=== PATIENT | male | born 1955 | race Caucasian/White ===

== ENCOUNTER 2016-10-27 19:20 | Emergency (ER) | payer OTHER ==
[~2016-10-27] VITALS: Ht 180.3 cm; Wt 83.5 kg
--- NOTE | ~2016-10-27 | EKG ---
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 : 1955 Requested By: Mary Garcia Order Number: [id number] MD: Efrem Al Measurements Intervals [place] Rate: 61 P: -14 CO: 207 QRS: -7 QRSD: 118 T: 55 QT: 422 QTc: 425 Interpretive Statements Sinus rhythm Nonspecific intraventricular conduction delay Probable anteroseptal infarct, old Compared to ECG 10/27/2014 17:38:08 Septal Q waves are now present Electronically Signed On 10-29-2016 7:48:08 CDT by Efrem Al [email or web address] <ELECTRONICALLY SIGNED> By: Efrem Al MD, [facility] 10/29/16 0748 34 34 Efrem Al MD, [facility] /EPI
[~2016-10-27 19:20] MED LIST: ACETAMINOPHEN325 M1 PO; ADULT LOW DOSE81 MG PO; AMARYL1 MG PO; CELEXA 20 MG TA20 M1 PO; CLOPIDOGREL75 MG PO; CLOZAPINE100 M1 PO; CLOZAPINE25 MG PO; COLACE 100 MG100 MG PO; COUMADIN 10MG T10 M1 PO; COUMADIN 1MG TAB1 M1 PO; COUMADIN 3 MG TA3 M1 PO; COUMADIN 5 MG TA5 M1 PO; DUONEB 2.5-0.5 M3 ML INH; EFFIENT10 MG PO; FAMOTIDINE20 MG PO; FAZACLO100 MG PO; FAZACLO200 MG PO; FAZACLO25 MG PO; HYDROCODON-ACE1 EAC7 PO; IPRAT-ALBUT 0.5-3 ML IH; JANTOVEN4 MG PO; K-DUR10 MEQ PO; LEVAQUIN 500 M500 M2 PO; LISINOPRIL20 MG PO; LOPRESSOR 12.12.5 MG PO; MELATONIN3 MG PO; MOM PO; MYSOLINE PO; NEURONTIN 400400 M1 PO; NEURONTIN800 MG PO; NITROGLYCERIN0.4 MG SUBLING; NOVOLOG100 UNIT/1 SUBQ; PEPCID20 MG PO; POTASSIUM20 PO; PREDNISONE PO; PREDNISONE50 MG PO; PRIMIDONE50 MG PO; RESTORIL15 MG PO; SIMVASTATIN40 MG PO; TAMSULOSIN HCL0.4 MG PO; VITAMIN B-12500 MCG PO; ZYPREXA 5 MG TAB5 M2 PO; ZYPREXA5 MG PO; [UNRECOGNIZED DRUG - OTHER] IO
[2016-10-27] MEDS ORDERED: FLONASE 0.05%50 MCG NASAL (19:30)
[2016-10-27] MEDS ORDERED: XARELTO10 MG PO (19:30)
[2016-10-27] MEDS ORDERED: LORATIDINE 10 M10 M1 PO (19:32)
[2016-10-27] MEDS ORDERED: MYSOLINE50 MG PO (19:35)
[2016-10-27] MEDS ORDERED: LEVEMIR SUBQ (19:37)
[2016-10-27] MEDS ORDERED: [UNRECOGNIZED DRUG - OTHER] PO (19:39)
[2016-10-27 19:46] LABS: ABSOLUTE NEUTROPHILS 5.1 thou/uL (1.4-8.2); EOSINOPHILS 5.3 % (0.0-3.0); HEMATOCRIT 39.1 % (42.0-52.0); HEMOGLOBIN 13.5 gm/dL (14.0-18.0); LYMPHOCYTES 21.9 % (24.0-44.0); MCH 28.5 pg (26.0-34.0); MCHC 34.5 g/dL (28.0-37.0); MCV 82.5 fL (80.0-100.0); MONOCYTES 6.6 % (1.0-8.0); PLATELET COUNT 157 thou/uL (150-400); POLYS 65.2 % (36.0-66.0); RBC 4.74 mil/uL (4.50-6.00); RDW 15.8 % (10.5-14.5); WBC 7.8 thou/uL (4.0-11.0)
[2016-10-27 19:47] LABS: MANUAL DIFF NO
[2016-10-27 19:55] LABS: ANION GAP 2 mmol/L (7-16); BUN 13 mg/dL (7-18); CHLORIDE 107 mmol/L (98-107); CO2 29 mmol/L (21-32); GLUCOSE 100 mg/dL (74-106); SODIUM 138 mmol/L (136-145)
[2016-10-27 20:02] LABS: ALBUMIN 3.4 g/dL (3.4-5.0); ALKALINE PHOSPHATASE 113 U/L (46-116); DIRECT BILIRUBIN 0.2 mg/dL (<0.1-0.3); SGOT 16 U/L (15-37); SGPT 16 U/L (30-65); TOTAL BILIRUBIN 0.5 mg/dL (<0.1-1.0); TOTAL PROTEIN 7.4 g/dL (6.4-8.2); TROPONIN-I < 0.04 ng/mL (<0.04-0.07)
== END 2016-10-27 20:49 ==
LOC: ER 19:20
PROVIDERS: Emergency Medicine
DX: R53.1 Weakness (principal); N40.0 Benign prostatic hyperplasia without lower urinary tract symptoms; J44.9 Chronic obstructive pulmonary disease, unspecified; K21.9 Gastro-esophageal reflux disease without esophagitis; M06.9 Rheumatoid arthritis, unspecified; I10 Essential (primary) hypertension; E11.9 Type 2 diabetes mellitus without complications; F25.9 Schizoaffective disorder, unspecified; F29 Unspecified psychosis not due to a substance or known physiological condition; Z88.0 Allergy status to penicillin; Z86.2 Personal history of diseases of the blood and blood-forming organs and certain disorders involving the immune mechanism; Z86.718 Personal history of other venous thrombosis and embolism; Z88.8 Allergy status to other drugs, medicaments and biological substances; Z79.4 Long term (current) use of insulin

== ENCOUNTER 2017-10-11 21:17 | Inpatient (IN) | payer OTHER ==
[~2017-10-11] VITALS: Ht 180.3 cm; Wt 80.5 kg
--- NOTE | ~2017-10-11 | EEG ---
[facility] [place] [address] ELECTROENCEPHALOGRAM Name: NATALIYA KEYS Room #: 453-P ADM IN M.R.#: [id number] Admission: 10/11/17 Attend Phys: Presley Patten MD Discharge: Date of : 51 Report #: [id number] THIS REPORT FOR: //name// CC: Presley Karimi DATE OF SERVICE: 10/13/2017 This patient is being evaluated for altered mental status. EEG was done by placing the electrodes by standard 10-20 system of electrode placement. Both referential and sequential montages were used for recording. Background activity in this patient's EEG is about 8-9 Hz and 30 microvolt. It is a symmetrical activity. Photic stimulation is unremarkable. This patient became drowsy. That is associated with bilateral slowing. Throughout the record, no active epileptiform activity was noted. IMPRESSION: Moderate amount of artifact because the patient continued to move. No active epileptiform activity appeared to be present. EEG is intermixed with slight theta range slowing, which is a nonspecific finding. That can occur with encephalopathy, effect of psychotropic medication, dementia, etc. Clinical correlation is recommended. By: 1834 1845 Tiago Quevedo MD /nt
--- NOTE | ~2017-10-11 | HC ---
[facility] [place] [address] CONSULTATION Name: NATALIYA KEYS Room #: 453-P ADM IN M.R.#: [id number] Admission: 10/11/17 Attend Phys: Presley Patten MD Discharge: Date of : 51 Report #: [id number] THIS REPORT FOR: //name// CC: Presley Karimi DATE OF SERVICE: 10/13/2017 HISTORY OF PRESENT ILLNESS: This is a 61-year-old male patient who was evaluated by me for the possibility of dementia. The patient is not providing much history. I got the history from the record. Apparently, this patient has a history of schizophrenia. He apparently fell down. It is not clear why he fell down. He does not think he passed out. Record indicates that he said he fell down 18 times. He usually uses a walker. He does have gait disturbances, severity is not clear. REVIEW OF SYSTEMS: Indicate that the patient appeared to have schizophrenia. He is on multiple medications, but it is not clear what medication he is on. He does take primidone, I am not sure why he takes primidone. He cannot tell me. He does take some antidepressants. I carried out the 14-point review of systems, part of it from the patient, part of it from him. That is all I can get in this patient. Record indicate he does have a history of acute kidney injury, altered mental status, dehydration, pneumonia, upper GI bleed, syncope, renal insufficiency, falls, weakness, etc., but that is all from the record. I cannot get any good history from the patient himself and that was his relevant 14-point review of systems I can get. PAST MEDICAL HISTORY: Positive for psychiatric problem. FAMILY HISTORY: Negative for early age stroke. SOCIAL HISTORY: He says he does not smoke, he does not drink alcohol, but it is difficult to confirm or verify the history. PHYSICAL EXAMINATION: Indicate he is alert, responsive. He does not tell me what month it is. He does not tell me what day it is. He does get wandered into his own world very soon. His memory and fund of knowledge does appear to be diminished. Cranial nerve examination 2-12 was attempted. He did not cooperate, but he moves all 4 extremities. He can appreciate the touch. Reflexes are difficult to test. DTR, he will not relax. His tone looks symmetrical. I tried to look at the fundus. He could not cooperate. He did not understand the instruction for cerebellar sign. His pulses are difficult to feel, but he has no edema, cyanosis or jaundice. Blood pressure is 151/76, respirations 20, pulse is 64, temperature is 97.8. His cardiac examination is unremarkable. There is no definite respiratory difficulty or rhonchi. [facility] [address] [place] [address] CONSULTATION Name: NATALIYA KEYS Room #: 453-P ADM IN M.R.#: [id number] Admission: 10/11/17 Attend Phys: Presley Patten MD Discharge: Date of : 51 Report #: [id number] LABORATORY DATA: His white count is 9.5 and his sodium is 139. He did have a CT scan of the head, which was reviewed and which was unremarkable. IMPRESSION: The patient's symptoms appeared to be secondary to psychiatric problem. He may have some underlying dementia. It is so difficult to tell because of his history. I will get an EEG done. We will look at his records and see if there is any contraindication for MRI and MRA. If it is not, then we might get an MRI of the brain, MRA of the head and neck. His blood workup is already ordered. We will await that. RECOMMENDATIONS: 1. EEG. 2. If we can exclude the contraindication, we can get an MRI of the brain, MRA of the head. 3. I will suggest getting a psychiatric consult. 4. He needs PT, OT, which is already ordered. Thank you very much for this referral and if you have any question, please feel free to contact me. By: 1452 0000 Tiago Quevedo MD /julisa
--- NOTE | ~2017-10-11 | EKG ---
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
--- NOTE | ~2017-10-11 | 2DMMODE ---
[facility] [address] [place] [address] 2 D/M-MODE ECHOCARDIOGRAM Name: NATALIYA KEYS [place] Room #: 453-P [facility] IN M.R.#: [id number] Admission: 10/11/17 Attend Phys: Presley Patten, Discharge: Date of : 51 Date of Service: 10/14/17 1011 Report #: [id number] THIS REPORT FOR: //name// APPROVED REPORT Study performed: 10/14/2017 08:27:21 EXAM: Comprehensive 2D, Doppler, and color-flow Echocardiogram Patient Location: Bedside Room #: [facility] Status: routine BSA: 1.98 HR: 78 bpm BP: 172/82 mmHg Other Information Study Quality: Technically Limited Indications COPD Diabetes CAD Hypertension/HDD Aortic Valve AoV Peak Jf.: 1.31 m/s AO Peak Gr.: 6.91 mmHg LVOT Max P.44 mmHg LVOT Max V: 1.05 m/s Mitral Valve E/A Ratio: 0.7 MV Decel. Time: 283.41 ms MV E Max Jf.: 0.89 m/s MV A Jf.: 1.22 m/s MV PHT: 82.19 ms IVRT: 124.57 ms Pulmonary Valve PV Peak Jf.: 0.88 m/s PV Peak Gr.: 3.07 mmHg Pulmonary Vein P Vein S: 0.28 m/s P Vein A: 0.31 m/s P Vein D: 0.24 m/s P Vein A Dur.: 101.5 msec P Vein S/D Ratio: 1.17 [facility] [address] [place] [address] 2 D/M-MODE ECHOCARDIOGRAM Name: LUDMILANATALIYA CUCO Room #: 453-P [facility] IN M.R.#: [id number] Admission: 10/11/17 Attend Phys: Presley Patten, Discharge: Date of : 51 Date of Service: 10/14/17 1011 Report #: [id number] Left Ventricle The left ventricle is normal size. There is normal LV segmental wall motion. There is normal left ventricular wall thickness. The left ventricular systolic function is normal. The left ventricular ejection fraction is within the normal range. LVEF is 55-60%. Grade I - abnormal relaxation pattern. Right Ventricle The right ventricle is normal size. The right ventricular systolic function is normal. Atria The left atrium size is normal. The right atrium size is normal. Aortic Valve The aortic valve is normal in structure. No aortic regurgitation is present. There is no aortic valvular stenosis. Mitral Valve The mitral valve is normal in structure. There is no mitral valve regurgitation noted. No evidence of mitral valve stenosis. Tricuspid Valve The tricuspid valve is normal in structure. There is no tricuspid valve regurgitation noted. Pulmonic Valve The pulmonary valve is normal in structure. There is no pulmonic valvular regurgitation. Great Vessels The aortic root is normal in size. IVC is not well visualized. Pericardium There is no pericardial effusion. <Conclusion> The left ventricular systolic function is normal. There is normal LV segmental wall motion. LVEF is 55-60%. Mild diastolic dysfunction The aortic valve is normal in structure. No aortic regurgitation or stenosis The mitral valve is normal in structure. No mitral valve [facility] [address] [place] [address] 2 D/M-MODE ECHOCARDIOGRAM Name: NATALIYA KEYS [place] Room #: 453-P [facility] IN M.R.#: [id number] Admission: 10/11/17 Attend Phys: Presley Patten, Discharge: Date of : 51 Date of Service: 10/14/17 1011 Report #: [id number] regurgitation There is no pericardial effusion. <ELECTRONICALLY SIGNED> By: Efrem Al MD, FACC 10/14/17 1011 101 101 Efrem Al MD, FACC /INF
[~2017-10-11 21:17] MED LIST changes: +FLONASE 0.05%50 MCG NASAL; +LEVEMIR SUBQ; -LOPRESSOR 12.12.5 MG PO; +LOPRESSOR50 PO; +LORATIDINE 10 M10 M1 PO; +MYSOLINE50 MG PO; +XARELTO10 MG PO; +[UNRECOGNIZED DRUG - OTHER] PO
[2017-10-11 21:18] VITALS: BP 115/51
[2017-10-11 21:54] LABS: ABSOLUTE NEUTROPHILS 6.2 thou/uL (1.4-8.2); BASOPHILS 0.6 % (0.0-2.0); EOSINOPHILS 3.2 % (0.0-3.0); HEMATOCRIT 36.3 % (42.0-52.0); HEMOGLOBIN 12.4 gm/dL (14.0-18.0); LYMPHOCYTES 16.7 % (24.0-44.0); MCH 28.1 pg (26.0-34.0); MCHC 34.2 g/dL (28.0-37.0); MCV 82.3 fL (80.0-100.0); MONOCYTES 9.2 % (1.0-8.0); PLATELET COUNT 180 thou/uL (150-400); POLYS 70.3 % (36.0-66.0); RBC 4.41 mil/uL (4.50-6.00); RDW 15.9 % (10.5-14.5); WBC 8.8 thou/uL (4.0-11.0)
[2017-10-11 22:01] LABS: CALCIUM 8.8 mg/dL (8.5-10.1); CREATININE 1.9 mg/dL (0.7-1.3); POTASSIUM 3.5 mmol/L (3.5-5.1)
[2017-10-11] MEDS ORDERED: LISINOPRIL5 MG PO (23:08)
[2017-10-11] MEDS ORDERED: SERTRALINE HCL100 MG PO (23:09)
[2017-10-11] MEDS ORDERED: VITAMIN D250000 UNIT PO (23:10)
[2017-10-11 23:32] LABS: URINE BILIRUBIN NEGATIVE (Negative); URINE BLOOD NEGATIVE (Negative); URINE CLARITY CLEAR; URINE COLOR YELLOW; URINE GLUCOSE-RANDOM* NEGATIVE (Negative); URINE KETONES NEGATIVE (Negative); URINE LEUKOCYTES-REFLEX NEGATIVE (Negative); URINE NITRITE-REFLEX NEGATIVE (Negative); URINE PROTEIN (DIPSTICK) TRACE (Negative); URINE SPECIFIC GRAVITY 1.015 (1.005-1.035)
[2017-10-12 01:08] VITALS: BP 152/62
[2017-10-12 05:08] LABS: HEMATOCRIT 35.5 % (42.0-52.0); HEMOGLOBIN 12.2 gm/dL (14.0-18.0); MCH 28.1 pg (26.0-34.0); MCHC 34.3 g/dL (28.0-37.0); MCV 81.8 fL (80.0-100.0); RBC 4.33 mil/uL (4.50-6.00); RDW 15.9 % (10.5-14.5); WBC 7.3 thou/uL (4.0-11.0)
[2017-10-12 05:21] LABS: CALCIUM 8.6 mg/dL (8.5-10.1); CREATININE 1.4 mg/dL (0.7-1.3); POTASSIUM 3.3 mmol/L (3.5-5.1)
[2017-10-12 05:58] LABS: TSH 0.654 uIU/mL (0.358-3.740)
[2017-10-12 08:00] VITALS: BP 154/73
[2017-10-12 15:25] VITALS: BP 143/75
[2017-10-12 15:28] VITALS: BP 141/83
[2017-10-12 15:32] VITALS: BP 144/75
[2017-10-12 18:58] VITALS: BP 177/87
[2017-10-13 03:54] VITALS: BP 144/81
[2017-10-13 05:54] LABS: HEMATOCRIT 36.5 % (42.0-52.0); HEMOGLOBIN 12.4 gm/dL (14.0-18.0); MCH 28.2 pg (26.0-34.0); RBC 4.4 mil/uL (4.50-6.00); RDW 15.6 % (10.5-14.5); WBC 9.5 thou/uL (4.0-11.0)
[2017-10-13 06:10] LABS: ALBUMIN 2.7 g/dL (3.4-5.0); CALCIUM 8.3 mg/dL (8.5-10.1); CREATININE 1.2 mg/dL (0.7-1.3); TOTAL BILIRUBIN 0.4 mg/dL (<0.1-1.0); TOTAL PROTEIN 6.5 g/dL (6.4-8.2)
[2017-10-13 09:17] VITALS: BP 151/76
[2017-10-13 13:44] LABS: MAGNESIUM 1.6 mg/dL (1.8-2.4); TROPONIN-I < 0.04 ng/mL (<0.06)
[2017-10-13 17:19] VITALS: BP 170/74
[2017-10-14 04:00] VITALS: BP 172/82
[2017-10-14 07:27] VITALS: BP 138/81
[2017-10-14 07:53] LABS: ABSOLUTE NEUTROPHILS 5.8 thou/uL (1.4-8.2); BASOPHILS 0.6 % (0.0-2.0); EOSINOPHILS 2.5 % (0.0-3.0); HEMATOCRIT 40.2 % (42.0-52.0); HEMOGLOBIN 13.5 gm/dL (14.0-18.0); LYMPHOCYTES 11.4 % (24.0-44.0); MCH 27.5 pg (26.0-34.0); MCHC 33.5 g/dL (28.0-37.0); MCV 82.1 fL (80.0-100.0); PLATELET COUNT 149 thou/uL (150-400); POLYS 78.5 % (36.0-66.0); RDW 15.6 % (10.5-14.5); WBC 7.4 thou/uL (4.0-11.0)
[2017-10-14 08:03] LABS: CALCIUM 9.2 mg/dL (8.5-10.1); CREATININE 1.1 mg/dL (0.7-1.3)
[2017-10-14 16:18] VITALS: BP 163/82
[2017-10-14 20:00] VITALS: BP 142/79
[2017-10-15 03:36] VITALS: BP 163/95
[2017-10-15 08:00] VITALS: BP 153/89
[2017-10-15 16:00] VITALS: BP 134/43
== END 2017-10-15 17:00 | DRG 682 ==
LOC: ER 21:17 → 4W 22:43 → EROBS 22:43 → 4W 10-12 00:01
PROVIDERS: Emergency Medicine; Hospitalist; Nurse Practitioner Family
PROC: 4A00X4Z Measurement of Central Nervous Electrical Activity, External Approach (ICD-10-PCS; principal; 2017-10-13)
DX: N17.9 Acute kidney failure, unspecified (principal); E43 Unspecified severe protein-calorie malnutrition; F20.9 Schizophrenia, unspecified; R29.6 Repeated falls; N40.0 Benign prostatic hyperplasia without lower urinary tract symptoms; J44.9 Chronic obstructive pulmonary disease, unspecified; E11.9 Type 2 diabetes mellitus without complications; K21.9 Gastro-esophageal reflux disease without esophagitis; I10 Essential (primary) hypertension; G47.00 Insomnia, unspecified; M06.9 Rheumatoid arthritis, unspecified; F17.210 Nicotine dependence, cigarettes, uncomplicated; W18.39XA Other fall on same level, initial encounter; Z86.718 Personal history of other venous thrombosis and embolism; Z79.899 Other long term (current) drug therapy; Z88.0 Allergy status to penicillin; Z88.8 Allergy status to other drugs, medicaments and biological substances; Z87.01 Personal history of pneumonia (recurrent); Z79.4 Long term (current) use of insulin; Y93.89 Activity, other specified; Y92.89 Other specified places as the place of occurrence of the external cause; Y99.8 Other external cause status; Z86.711 Personal history of pulmonary embolism; Z68.24 Body mass index [BMI] 24.0-24.9, adult
CPT/HCPCS: 10040; 10045

== ENCOUNTER 2017-12-18 13:46 | Inpatient (IN) | payer OTHER ==
[2017-12-18] VITALS (11 sets, daily range): BP systolic 75–162; BP diastolic 44–76
[~2017-12-18] VITALS: Ht 180.3 cm; Wt 76.3 kg
--- NOTE | ~2017-12-18 | HC ---
[facility] [place] [address] CONSULTATION Name: NATALIYA KEYS Room #: 421-P ADM IN M.R.#: [id number] Admission: 12/18/17 Attend Phys: Bala Arellano Discharge: Date of : 51 Report #: [id number] THIS REPORT FOR: //name// CC: Bala Karimi DATE OF SERVICE: 12/18/2017 REASON FOR CONSULTATION: Subdural hematoma. HISTORY OF PRESENT ILLNESS: The patient is a pleasant 62-year-old man who presented to the emergency room with a history of recurrent falls. He reports that over the last several months, he has had problems with falling. When I asked him how many times he is falling, he said many, many, but he felt as though he had fallen 38 times. He does have a psychiatric history. He saw a psychiatrist on the day of admission who noticed that he was hypotensive and recommended an evaluation in the hospital. Additionally, the patient reports problems with a 10-pound weight loss in the last month. He denies any pain. He denies any weakness. He denies any problems with headache. He has a history of include renal insufficiency, history of pneumonia, and history of frequent falls. PSYCHIATRIC HISTORY: As described above. ALLERGIES: To PENICILLIN, PERPHENAZINE, and TRIFLUOPERAZINE. MEDICATIONS: Available on the chart and are noncontributory except for history of Plavix and Xarelto. PAST MEDICAL HISTORY: Includes anemia, angina, BPH, COPD, diabetes, history of DVT in the past, hypertension, hypokalemia, psychosis, schizoaffective disorder, seizure, obsessive compulsive disorder, and tobacco use, he is an everyday smoker, alcohol use, there is use in the past, but not currently. REVIEW OF SYSTEMS: A 12 points was performed and was negative other than outlined above. PHYSICAL EXAMINATION: GENERAL: He is supine in bed, head of bed is elevated about 20 degrees. He is pleasant, alert and cooperative throughout the examination. He is alert and oriented x3. HEENT: Atraumatic, normocephalic. Pupils are equal and reactive with normal extraocular motor function. Facial motor and facial sensory examination was normal. [facility] [address] [place] [address] CONSULTATION Name: NATALIYA KEYS Room #: 421-P [facility] IN M.R.#: [id number] Admission: 12/18/17 Attend Phys: Bala Arellano Discharge: Date of : 51 Report #: [id number] NEUROLOGIC: His lower cranial nerves were intact. On motor testing, his strength 5/5 in upper and lower extremities bilaterally. On sensory exam, he is intact to light touch in the upper and lower extremities bilaterally. He was hyporeflexic. NECK: Supple. CHEST: Regular rate and rhythm. Respirations symmetric. EXTREMITIES: There was full range of motion of upper and lower extremities bilaterally. LABORATORY DATA: I reviewed a CT scan of the head from yesterday. On that study, there is a small left parietotemporal subdural with no midline shift and notes without any significant mass effect. IMPRESSION: Subdural hematoma related to fall. RECOMMENDATIONS: Anticoagulants must be held. We are going to repeat a CT scan of the head later today. I would keep him in ICU today. I appreciate you asking us to see him. <ELECTRONICALLY SIGNED> By: Kris Kendrick MD 12/21/17 1031 1005 1047 Kris Kendrick MD /nt
--- NOTE | ~2017-12-18 | EKG ---
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 12/19/17 0844 1403 1403 Efrem Al MD, [facility] /EPI
[~2017-12-18 13:46] MED LIST changes: +LISINOPRIL5 MG PO; +SERTRALINE HCL100 MG PO; +VITAMIN D250000 UNIT PO
[2017-12-18 14:28] LABS: ANION GAP 4 mmol/L (7-16); BUN 21 mg/dL (7-18); CALCIUM 8.9 mg/dL (8.5-10.1); CHLORIDE 101 mmol/L (98-107); CO2 31 mmol/L (21-32); CREATININE 1.7 mg/dL (0.7-1.3); GLUCOSE 112 mg/dL (74-106); POTASSIUM 3.8 mmol/L (3.5-5.1); SODIUM 136 mmol/L (136-145)
[2017-12-18 14:37] LABS: ALBUMIN 3.4 g/dL (3.4-5.0); HEMATOCRIT 36.5 % (42.0-52.0); HEMOGLOBIN 12.2 gm/dL (14.0-18.0); MCH 28.1 pg (26.0-34.0); MCHC 33.5 g/dL (28.0-37.0); MCV 83.7 fL (80.0-100.0); RBC 4.35 mil/uL (4.50-6.00); RDW 14.8 % (10.5-14.5); SGOT 20 U/L (15-37); SGPT 23 U/L (30-65); TOTAL BILIRUBIN 0.6 mg/dL (<0.1-1.0); TOTAL PROTEIN 7.7 g/dL (6.4-8.2); TROPONIN-I <0.06 ng/mL (<0.06); WBC 8.5 thou/uL (4.0-11.0)
[2017-12-18 15:12] LABS: URINE BILIRUBIN NEGATIVE (Negative); URINE BLOOD NEGATIVE (Negative); URINE CLARITY CLEAR; URINE COLOR YELLOW; URINE GLUCOSE-RANDOM* NEGATIVE (Negative); URINE KETONES NEGATIVE (Negative); URINE LEUKOCYTES-REFLEX NEGATIVE (Negative); URINE NITRITE-REFLEX NEGATIVE (Negative); URINE PROTEIN (DIPSTICK) NEGATIVE (Negative); URINE SPECIFIC GRAVITY 1.015 (1.005-1.035)
[2017-12-18] MEDS ORDERED: CLOPIDOGREL75 MG PO (20:30)
[2017-12-18] MEDS ORDERED: XARELTO10 MG PO (20:42)
[2017-12-19] VITALS (22 sets, daily range): BP systolic 94–158; BP diastolic 34–108
[2017-12-19 09:45] LABS: APTT 35.9 Seconds (24.5-32.8); INR 1.1; PROTIME 11.7 Seconds (9.3-11.4)
[2017-12-20] VITALS (14 sets, daily range): BP systolic 96–141; BP diastolic 57–78
[2017-12-21 03:30] VITALS: BP 137/66
[2017-12-21 09:00] VITALS: BP 120/67
== END 2017-12-21 15:24 | DRG 83 ==
LOC: ER 13:46 → ICU 16:07 → EROBS 16:07 → ICU 17:30 → 4E 12-20 12:49
PROVIDERS: Hospitalist; Student in an Organized Health Care Education/Training Program
DX: S06.5X9A Traumatic subdural hemorrhage with loss of consciousness of unspecified duration, initial encounter (principal); N39.0 Urinary tract infection, site not specified; N40.0 Benign prostatic hyperplasia without lower urinary tract symptoms; K59.00 Constipation, unspecified; J44.9 Chronic obstructive pulmonary disease, unspecified; E11.9 Type 2 diabetes mellitus without complications; K21.9 Gastro-esophageal reflux disease without esophagitis; I10 Essential (primary) hypertension; G47.00 Insomnia, unspecified; M06.9 Rheumatoid arthritis, unspecified; F17.210 Nicotine dependence, cigarettes, uncomplicated; Z86.718 Personal history of other venous thrombosis and embolism; Z88.0 Allergy status to penicillin; Z88.8 Allergy status to other drugs, medicaments and biological substances; Z79.01 Long term (current) use of anticoagulants; Z79.899 Other long term (current) drug therapy; W18.39XA Other fall on same level, initial encounter; Y93.89 Activity, other specified; Y92.89 Other specified places as the place of occurrence of the external cause; Y99.8 Other external cause status
CPT/HCPCS: 10078; 10183